=== PATIENT | male | born 1975 | race Caucasian/White ===

== ENCOUNTER 2018-10-25 13:37 | Inpatient (IN) | payer BC, SELFPAY ==
[2018-10-25] VITALS (34 sets, daily range): BP systolic 82–162; BP diastolic 54–111; PULSE 60–98; RESP 14–24; TEMP 35.6–36.7; O2SAT 95–100
--- NOTE | 2018-10-25 13:44 | NUR.NOTE ---
pt veered off path [employer] skiing at approximately 15 mph striking his right leg against a tree. obvious deformity. pt was wearing a helmet and denies LOC how hitting his head in any way. pt denies neck pain. any other complications other than right leg
--- NOTE | 2018-10-25 14:12 | DI.RAD_ITS ---
SYMPTOM/DIAGNOSIS: RIGHT TIBIA AND FIBULA: There is a fracture of the proximal fibula which shows more than a shaft width displacement. There is a fracture of the proximal third of the fibular shaft with approximately half shaft width of displacement laterally and posteriorly. The knee and ankle appear intact. IMPRESSION: Fractures of the proximal tibia and fibula. PORTABLE RIGHT TIBIA AND FIBULA: Two views were performed with a posterior splint in place. An intramedullary alina is again noted the tibia for fracture fixation. The proximal tibial and fibular fractures show anatomic alignment. There is no ankle mortise widening. The knee is unremarkable.
[2018-10-25] MEDS: Ketorolac 30 MG/ML VIAL IVP (14:16)
--- NOTE | 2018-10-25 14:37 | DI.VRAD_ITS ---
EXAM: XR Right Tibia and Fibula, 2 Views EXAM DATE/TIME: 10/25/2018 1:42 PM CLINICAL HISTORY: 43 years old, male; Pain; Lower leg; Right; Patient HX: Ski accident today TECHNIQUE: XR Right tibia and fibula 2 views COMPARISON: No relevant prior studies available. FINDINGS: Fractures of the proximal third of the tibia and fibula with approximately 1-1-1/2 shaft widths of lateral displacement and a half shaft width of posterior displacement. Mild medial angulation. Joint space is well-maintained. Soft tissues unremarkable. IMPRESSION: Fractures of the proximal thirds of the tibia and fibula. Dictated and Authenticated by: Jose Jay MD. Ordering:MARTINE Joyner MD
[2018-10-25 15:20] LABS: Abs Immature Grans 0.01 k/cumm (0.0-0.09); Absolute Eosinophil Count 0.04 k/cumm (0.0-0.7); Absolute Lymphocyte Count 1.12 k/cumm (1.2-3.4); Absolute Monocyte Count 0.89 k/cumm (0.11-0.7); Absolute Neutrophil Count 10.77 k/cumm (1.2-6.7); Basophils % 0.2; Eosinophils % 0.3; HCT 42.7 % (40.0-50.0); Immature Grans % 0.1; Lymphocytes % 8.7; Mean Corp. HGB Concentration 35.1 g/dL (32.0-36.0); Mean Corpuscular Hemoglobin 30.5 pg (27.0-33.0); Mean Platelet Volume 9.5 fL (8.0-11.0); Monocytes % 6.9; Neutrophils % 83.8; Platelet Count 299 x1000/uL (130-400); RBC 4.91 m/cumm (4.50-6.00); RBC Distribution Width 12.2 % (11.8-14.1); White Blood Cell Count 12.85 k/cumm (4.4-10.8)
[2018-10-25 15:21] LABS: Absolute Basophil Count 0.03 k/cumm (0.0-0.2)
[2018-10-25 15:32] LABS: ALT 60 U/L (12-78); AST 39 U/L (15-37); Albumin 4.3 g/dL (3.4-5.0); Alkaline Phosphatase 67 U/L (46-116); Anion Gap 7.1 mmol/L (3-11); BUN 17 mg/dL (7-18); Bilirubin, Total 0.6 mg/dL (0.2-1.0); CO2 31.9 mmol/L (21.0-32.0); Calcium 9.3 mg/dL (8.5-10.1); Chloride 101 mmol/L (98-107); Glucose 98 mg/dL (70-100); PTT Activated 21.5 sec (21.0-31.4); Potassium 4.5 mmol/L (3.5-5.1); Prothrombin Time 9.8 sec (9.3-11.0); Sodium 140 mmol/L (136-145); Total Protein 8.6 g/dL (6.4-8.2)
--- NOTE | 2018-10-25 16:11 | W.ED.GENAD ---
Discharge Plan Disposition Patient Disposition: [facility] INPATIENT Condition: Stable Discharge Details Chief Complaint: Orthopedic Clinical Impression: Closed tibia fracture, Fibula fracture Primary Care Provider: [facility] ED Provider: Ar Reed Home Meds and New Rx's Prescriptions: No Action dextroamphetamine-amphetamine [Adderall] 20 mg Tablet 20 mg PO DAILY RF: 0 Medical Decision Making This is a pleasant 43-year-old male who got in a skiing accident earlier today, his right juarez came in contact with a tree at a high rate of speed. Notable deformity in the right juarez. Neurovascularly intact upon his arrival to the ER. Concern for significant fracture. Patient shows no other signs of significant trauma for his pelvis, knee, ankle, chest or abdomen. X-ray exam does demonstrate notable fracture with displacement at the mid tib/fib. Patient continues to demonstrate an intact peripheral vascular exam, and neurologic exam. Two-point discrimination is intact, compartments remain soft with no signs of compartment syndrome. Because of the note ability the fracture we did contact orthopedics and discussed the case with Dr. Jara, he agrees with the need for surgical management. Patient's pain is been controlled with Toradol, and fentanyl. Patient's last meal was at 10:30 AM. Patient will be transferred to the OR for surgical management. During the entirety of the patient's stay is maintained excellent neurovascular exam. There was a brief 32 second period where the brace was taken off in imaging without the ER staff, and when he returned repeat exam shows signs concerning for decreased pulses in the right. Patient was immediately resplinted, and he demonstrated excellent capillary refill, dorsalis pedis and posterior tibial pulses. I have extensively reviewed the treatment plan with the patient. I have addressed all patient concerns at this time. I have also discussed the plan with the admitting physician and they agree with the current assessment and plan and have agreed to assume responsibility for the patient. All parties demonstrate verbal understanding and agreement with our assessment and plan at this time. HPI General Date/Time Provider Initiated Documentation: 10/25/18 13:40. HPI Narrative: This is a 43-year-old male with a past medical history of ADHD and Reynauds syndrome who presents today for evaluation of right leg pain. He was skiing at work when his leg hit a tree. He was extracted off the mountain to a prolonged process, he had notable deformity in his right lower extremity at the midshaft tib-fib. He was brought to the ER for further evaluation. Patient denies any numbness or tingling. He denies any knee pain, ankle pain, femur chest or pelvis pain. He did not hit his head, he has no loss of consciousness. He denies any other complaints. 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 Patient denies any other complaints at this time. No other modifying factors. He is on no blood thinners Related Data Home Medications Medication Instructions Recorded Confirmed dextroamphetamine-amphetamine 20 mg PO DAILY 10/25/18 10/25/18 [Adderall] Allergies Allergy/AdvReac Type Severity Reaction Status Date / Time No Known Allergies Allergy Unverified 10/25/18 13:52 General Stated Complaint: Orthopedic JARON: 3 Review of Systems Review of Systems All systems reviewed & are unremarkable except as noted in HPI and below PFSH Social History Smoking and Tabacco status: Never Exam Narrative Exam Narrative: 1.Const: Well-nourished, Well-developed, appearing stated age 2.Eyes: PERRL, no conjunctival injection, and symmetrical lids. 3.ENT: Atraumatic external nose and ears. Moist MM. Neck: Symmetric, trachea midline, No thyromegaly. 4.CVS: Regular rate and rhythm, Normal s1 and s2. No murmurs, carotid bruits, rubs, or gallops. Radial pulses 2+ bilaterally and symmetric. Dorsalis pedis pulses 2+ bilaterally and symmetric. 2+ capillary refill. No evidence of distant heart sounds. No extremity edema. No evidence of gross hemorrhage. 5.RESP: Airway clear, no obstructions. No abrasions or ecchymosis. Chest movement symmetric with respirations. No chest wall tenderness. Trachea midline. No crepitus. No step offs. No paradoxical movements. Lungs are clear to auscultation bilaterally. No rales, rhonchi, wheezing or stridor. Breath sound symmetric. No Sucking chest wounds. No clinical evidence of significant chest trauma. 6.GI: Soft, nondistended, nontender. Bowel tones normoactive. No masses or organomegaly. No ecchymosis or abrasions. No periumbilical ecchymosis or seatbelt sign. No flank or CVA tenderness. No clinical signs of significant trauma. No clinical evidence of significant abdominal trauma. 7.MSK: All compartments of upper and lower extremities are soft. Vascular exam demonstrates brisk capillary refill and intact pulses in all extremities. Pelvic exam demonstrates a stable pelvis, nontender to lateral compression and palpation of symphysis pubis. Notable deformity is present over the midshaft of the tib-fib on the right lower extremity. Patient is currently in a splint. Splint was removed and he demonstrated notable instability of the leg. While splinted patient's dorsalis pedis and posterior tibial pulses +2 bilaterally, with brisk capillary refill. This temporarily unsplinted for the x-ray imaging, at which point pulse was notably decreased, after re-splinting within 30 seconds he had complete resolution and strong pulse in his right lower extremity. Patient is able to flex and extend the foot, excellent sensation throughout the foot, good two-point discrimination for all toes. 8.Skin: Warm, Dry. No rashes or lesions. 9.Neuro: corporate manager II-XII grossly intact. Sensation grossly intact, no focal neurologic deficits. 10.Psych: (AAO) x3. Appropriate mood and affect Course Vital Signs Temperature 36.5 C 10/25/18 13:46 Pulse 98 H 10/25/18 13:46 Respiratory Rate 17 10/25/18 13:46 Blood Pressure 134/88 10/25/18 13:46 Pulse Oximetry 98 10/25/18 13:46 Temperature 36.5 C 10/25/18 13:46 Temperature Source Skin 10/25/18 13:46 Pulse 98 H 10/25/18 13:46 Respiratory Rate 17 10/25/18 13:46 Respiratory Effort 10/25/18 13:53 Blood Pressure 134/88 10/25/18 13:46 Blood Pressure Position Supine 10/25/18 13:46 Pulse Oximetry 98 10/25/18 13:46 Oxygen Delivery Method Room Air 10/25/18 13:46 Oxygen Flow Rate 0 10/25/18 13:46 Pain Level 6 10/25/18 13:46 Lab/Test Results Lab/Test Results: Laboratory Tests Range/Units 10/25/18 10/25/18 10/25/18 14:53 14:53 14:53 WBC (4.4-10.8) k/cumm 12.85 H RBC (4.50-6.00) m/cumm 4.91 Hgb (13.5-17.5) g/dL 15.0 Hct (40.0-50.0) % 42.7 MCV (80-95) fL 87.0 MCH (27.0-33.0) pg 30.5 MCHC (32.0-36.0) g/dL 35.1 RDW (11.8-14.1) % 12.2 Plt Count (130-400) x1000/uL 299 MPV (8.0-11.0) fL 9.5 Immature Gran % 0.1 Neutrophils % 83.8 Lymphocytes % 8.7 Monocytes % 6.9 Eosinophils % 0.3 Basophils % 0.2 Absolute Neutrophils (1.2-6.7) k/cumm 10.77 H Absolute Lymphocytes (1.2-3.4) k/cumm 1.12 L Absolute Monocytes (0.11-0.7) k/cumm 0.89 H Absolute Eosinophils (0.0-0.7) k/cumm 0.04 Absolute Basophils (0.0-0.2) k/cumm 0.03 PT (9.3-11.0) sec 9.8 INR (0.9-1.1) 1.0 APTT (21.0-31.4) sec 21.5 Sodium (136-145) mmol/L 140 Potassium (3.5-5.1) mmol/L 4.5 Chloride (98-107) mmol/L 101 Carbon Dioxide (21.0-32.0) mmol/L 31.9 Anion Gap (3-11) mmol/L 7.1 BUN (7-18) mg/dL 17 Creatinine (0.70-1.30) mg/dL 1.10 Estimated GFR/1.73 m2 (mL/min/1.73m2) >= 60.00 Glucose (70-100) mg/dL 98 Calcium (8.5-10.1) mg/dL 9.3 Total Bilirubin (0.2-1.0) mg/dL 0.6 AST (15-37) U/L 39 H ALT (12-78) U/L 60 Alkaline Phosphatase (46-116) U/L 67 Total Protein (6.4-8.2) g/dL 8.6 H Albumin (3.4-5.0) g/dL 4.3
--- NOTE | 2018-10-25 16:14 | NUR.NOTE ---
pidal pulse strong and equal bilaterally when affected limb is splinted. however pedal pulse absent when right leg not splinted
--- NOTE | 2018-10-25 16:22 | ED.GENADUL_ITS ---
Discharge Plan Disposition Patient Disposition: [facility] INPATIENT Condition: Stable Discharge Details Chief Complaint: Orthopedic Clinical Impression: Closed tibia fracture, Fibula fracture Primary Care Provider: [facility] ED Provider: Ar Reed Home Meds and New Rx's Prescriptions: No Action dextroamphetamine-amphetamine [Adderall] 20 mg Tablet 20 mg PO DAILY RF: 0 Medical Decision Making This is a pleasant 43-year-old male who got in a skiing accident earlier today, his right juarez came in contact with a tree at a high rate of speed. Notable deformity in the right juarez. Neurovascularly intact upon his arrival to the ER. Concern for significant fracture. Patient shows no other signs of significant trauma for his pelvis, knee, ankle, chest or abdomen. X- ray exam does demonstrate notable fracture with displacement at the mid tib/fib. Patient continues to demonstrate an intact peripheral vascular exam, and neurologic exam. Two-point discrimination is intact, compartments remain soft with no signs of compartment syndrome. Because of the note ability the fracture we did contact orthopedics and discussed the case with Dr. Jara, he agrees with the need for surgical management. Patient's pain is been controlled with Toradol, and fentanyl. Patient's last meal was at 10:30 AM. Patient will be transferred to the OR for surgical management. During the entirety of the patient's stay is maintained excellent neurovascular exam. There was a brief 32 second period where the brace was taken off in imaging without the ER staff, and when he returned repeat exam shows signs concerning for decreased pulses in the right. Patient was immediately resplinted, and he demonstrated excellent capillary refill, dorsalis pedis and posterior tibial pulses. I have extensively reviewed the treatment plan with the patient. I have addressed all patient concerns at this time. I have also discussed the plan with the admitting physician and they agree with the current assessment and plan and have agreed to assume responsibility for the patient. All parties demonstrate verbal understanding and agreement with our assessment and plan at this time. HPI General Date/Time Provider Initiated Documentation: 10/25/18 13:40 . HPI Narrative: This is a 43-year-old male with a past medical history of ADHD and Reynauds syndrome who presents today for evaluation of right leg pain. He was skiing at work when his leg hit a tree. He was extracted off the mountain to a prolonged process, he had notable deformity in his right lower extremity at the midshaft tib-fib. He was brought to the ER for further evaluation. Patient denies any numbness or tingling. He denies any knee pain, ankle pain, femur chest or pelvis pain. He did not hit his head, he has no loss of consciousness. He denies any other complaints. 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 Patient denies any other complaints at this time. No other modifying factors. He is on no blood thinners Related Data Home Medications Medication Instructions Recorded Confirmed dextroamphetamine-amphetamine 20 mg PO DAILY 10/25/18 10/25/18 [Adderall] Allergies Allergy/AdvReac Type Severity Reaction Status Date / Time No Known Allergies Allergy Unverified 10/25/18 13:52 General Stated Complaint: Orthopedic JARON: 3 Review of Systems Review of Systems All systems reviewed & are unremarkable except as noted in HPI and below PFSH Social History Smoking and Tabacco status: Never Exam Narrative Exam Narrative: 1.Const: Well-nourished, Well-developed, appearing stated age 2.Eyes: PERRL, no conjunctival injection, and symmetrical lids. 3.ENT: Atraumatic external nose and ears. Moist MM. Neck: Symmetric, trachea midline, No thyromegaly. 4.CVS: Regular rate and rhythm, Normal s1 and s2. No murmurs, carotid bruits, rubs, or gallops. Radial pulses 2+ bilaterally and symmetric. Dorsalis pedis pulses 2+ bilaterally and symmetric. 2+ capillary refill. No evidence of distant heart sounds. No extremity edema. No evidence of gross hemorrhage. 5.RESP: Airway clear, no obstructions. No abrasions or ecchymosis. Chest movement symmetric with respirations. No chest wall tenderness. Trachea midline. No crepitus. No step offs. No paradoxical movements. Lungs are clear to auscultation bilaterally. No rales, rhonchi, wheezing or stridor. Breath sound symmetric. No Sucking chest wounds. No clinical evidence of significant chest tr auma. 6.GI: Soft, nondistended, nontender. Bowel tones normoactive. No masses or organomegaly. No ecchymosis or abrasions. No periumbilical ecchymosis or seatbelt sign. No flank or CVA tenderness. No clinical signs of significant trauma. No clinical evidence of significant abdominal trauma. 7.MSK: All compartments of upper and lower extremities are soft. Vascular exam demonstrates brisk capillary refill and intact pulses in all extremities. Pelvic exam demonstrates a stable pelvis, nontender to lateral compression and palpation of symphysis pubis. Notable deformity is present over the midshaft of the tib-fib on the right lower extremity. Patient is currently in a splint. Splint was removed and he demonstrated notable instability of the leg. While splinted patient's dorsalis pedis and posterior tibial pulses +2 bilaterally, with brisk capillary refill. This temporarily unsplinted for the x-ray imaging, at which point pulse was notably decreased, after re-splinting within 30 se conds he had complete resolution and strong pulse in his right lower extremity. Patient is able to flex and extend the foot, excellent sensation throughout the foot, good two-point discrimination for all toes. 8.Skin: Warm, Dry. No rashes or lesions. 9.Neuro: credit verifier II-XII grossly intact. Sensation grossly intact, no focal neurologic deficits. 10.Psych: (AAO) x3. Appropriate mood and affect Course Vital Signs Temperature 36.5 C 10/25/18 13:46 Pulse 98 H 10/25/18 13:46 Respiratory Rate 17 10/25/18 13:46 Blood Pressure 134/88 10/25/18 13:46 Pulse Oximetry 98 10/25/18 13:46 Temperature 36.5 C 10/25/18 13:46 Temperature Source Skin 10/25/18 13:46 Pulse 98 H 10/25/18 13:46 Respiratory Rate 17 10/25/18 13:46 Respiratory Effort 10/25/18 13:53 Blood Pressure 134/88 10/25/18 13:46 Blood Pressure Position Supine 10/25/18 13:46 Pulse Oximetry 98 10/25/18 13:46 Oxygen Delivery Method Room Air 10/25/18 13:46 Oxygen Flow Rate 0 10/25/18 13:46 Pain Level 6 10/25/18 13:46 Lab/Test Results Lab/Test Results: Laboratory Tests Range/Units 10/25/18 10/25/18 10/25/18 14:53 14:53 14:53 WBC (4.4-10.8) k/cumm 12.85 H RBC (4.50-6.00) m/cumm 4.91 Hgb (13.5-17.5) g/dL 15.0 Hct (40.0-50.0) % 42.7 MCV (80-95) fL 87.0 MCH (27.0-33.0) pg 30.5 MCHC (32.0-36.0) g/dL 35.1 RDW (11.8-14.1) % 12.2 Plt Count (130-400) x1000/uL 299 MPV (8.0-11.0) fL 9.5 Immature Gran % 0.1 Neutrophils % 83.8 Lymphocytes % 8.7 Monocytes % 6.9 Eosinophils % 0.3 Basophils % 0.2 Absolute Neutrophils (1.2-6.7) k/cumm 10.77 H Absolute Lymphocytes (1.2-3.4) k/cumm 1.12 L Absolute Monocytes (0.11-0.7) k/cumm 0.89 H Absolute Eosinophils (0.0-0.7) k/cumm 0.04 Absolute Basophils (0.0-0.2) k/cumm 0.03 PT (9.3-11.0) sec 9.8 INR (0.9-1.1) 1.0 APTT (21.0-31.4) sec 21.5 Sodium (136-145) mmol/L 140 Potassium (3.5-5.1) mmol/L 4.5 Chloride (98-107) mmol/L 101 Carbon Dioxide (21.0-32.0) mmol/L 31.9 Anion Gap (3-11) mmol/L 7.1 BUN (7-18) mg/dL 17 Creatinine (0.70-1.30) mg/dL 1.10 Estimated GFR/1.73 m2 (mL/min/1.73m2) >= 60.00 Glucose (70-100) mg/dL 98 Calcium (8.5-10.1) mg/dL 9.3 Total Bilirubin (0.2-1.0) mg/dL 0.6 AST (15-37) U/L 39 H ALT (12-78) U/L 60 Alkaline Phosphatase (46-116) U/L 67 Total Protein (6.4-8.2) g/dL 8.6 H Albumin (3.4-5.0) g/dL 4.3
--- NOTE | 2018-10-25 17:22 | W.ORTHOCONSU ---
Date of service: 10/25/18 Time of Service: 15:22 History of Present Illness Chief Complaint: Right Tibia Fracture Narrative: Rafael is a 43-year-old active individual who was skiing today at [place]. He was coming down some drain when he lost control and eventually hit a tree. He hit the tree with the right leg. He is unsure exactly the complete mechanism. However, he had notable deformity pain and was unable to ambulate. police or patrol park officer was able to evaluate him and placed him into a splint to bring down the mountain. Once arrived at [facility] he was noted to have a tibia shaft fracture of the proximal fibula fracture. There was grossly unstable and had difficulty in maintaining an adequate reduction. He did have a moment where his pulses were faint while the splint was removed for x-ray. However, they quickly came back with appropriate reduction and splinting. He notes pain throughout the majority of the leg especially the mid and proximal portion of the tibia. He denies any numbness or tingling distally into the leg. He denies previous surgery to the knee or to the leg. He does report having a known meniscal tear of the right knee. His only other medical issue is Reynauds and ADHD. He denied any head trauma. No loss of consciousness. No chest pain or shortness of breath. No pain with gentle motion of his toes. Consult Reason Right tibia fracture Assessment and Plan (1) Right tibial fracture: Start date: 10/25/18 Start time: 13:32 Current visit: Yes Status: Acute Rafael is a 43-year-old who has suffered a right tibia fibula fracture after colliding with a tree. He has gross instability of the leg and a very tenuous pulse if the reduction is lost. He has no other injury identified and is otherwise healthy. Given this fracture I would recommend fixation as soon as possible. He is from the [facility] with a second house locally. It is also not unreasonable to consider splinting and transfer to an emergency department in his local area. However, I am happy to fix this here. I do think it is necessary to be fixed rather quickly to prevent any continued bleeding and swelling and also make sure there is no transient loss of pulses due to positioning. There is a risk of compartment syndrome and therefore he will need to be admitted overnight for observation following surgery. I reviewed the technical details of the surgery, intramedullary nail fixation of the tibia. I reviewed the risk of the procedure to include bleeding, infection, pain, stiffness, damage to nerves and vessels, damage to muscle tendons, hardware prominence, hardware failure, malunion, nonunion, need for repeat procedures, compartment syndrome, blood clot. Despite these risks, he elects to proceed. Qualifiers: Encounter type: initial encounter Tibia location: shaft Fracture type: closed Fracture morphology: transverse Fracture alignment: displaced Qualified Code(s): S82.221A - Displaced transverse fracture of shaft of right tibia, initial encounter for closed fracture Review of Systems Review of Systems All systems reviewed & are unremarkable except as noted in HPI and below PFSH Medical History ADHD (Acute) Raynaud disease (Acute) Social History Smoking and Tabacco status: Never Exam Const General: cooperative, healthy appearing, comfortable, no acute distress and well developed Nutritional Appearance: average body habitus Orientation: alert, awake and oriented x3 HENMT Head: normal to inspection and normocephalic Ears: hearing grossly normal bilaterally Face and sinus: normal facial exam Chest Chest: normal inspection of the chest Resp Effort & Inspection: normal respiratory effort and able to speak in complete sentences Auscultation: clear to auscultation bilaterally Cardio Rate: regular rate Rhythm: regular rhythm Extrem Right lower extremity: lower leg Details: tenderness Location: of the proximal tibia, of the proximal fibula and of the midshaft tibia, abrasion proximal lower leg medial and deformity Location: of the mid lower leg Other: There is significant softness of the proximal aspect of the distal leg with gross motion which is palpable throughout the tibia. Crepitus as well. All compartments are soft. He is able to actively dorsiflex and plantarflex the ankle as well as extend and flex the great toe with very minimal amount of pain. He endorses full sensation to the superficial peroneal nerve, deep peroneal nerve, and tibial nerve. There is an easily palpable PT and DP pulse. The foot is warm well perfused. There is a superficial abrasion seen of the proximal medial aspect of the leg. There is no knee effusion. No pain to palpation of the thigh. Results Last Vital Signs Temp 36.5 C 10/25/18 13:46 Pulse 87 10/25/18 16:00 Resp 17 10/25/18 13:46 BP 124/74 10/25/18 16:00 Pulse Ox 98 10/25/18 16:01 Labs : 10/25/18 14:53 10/25/18 14:53 Laboratory Results - last 24 hr 10/25/18 10/25/18 10/25/18 14:53 14:53 14:53 WBC 12.85 H RBC 4.91 Hgb 15.0 Hct 42.7 MCV 87.0 MCH 30.5 MCHC 35.1 RDW 12.2 Plt Count 299 MPV 9.5 Immature Gran % 0.1 Neutrophils % 83.8 Lymphocytes % 8.7 Monocytes % 6.9 Eosinophils % 0.3 Basophils % 0.2 Absolute Neutrophils 10.77 H Absolute Lymphocytes 1.12 L Absolute Monocytes 0.89 H Absolute Eosinophils 0.04 Absolute Basophils 0.03 PT INR APTT Sodium 140 Potassium 4.5 Chloride 101 Carbon Dioxide 31.9 Anion Gap 7.1 BUN 17 Creatinine 1.10 Estimated GFR/1.73 m2 >= 60.00 Glucose 98 Calcium 9.3 Total Bilirubin 0.6 AST 39 H ALT 60 Alkaline Phosphatase 67 Total Protein 8.6 H Albumin 4.3 Patient ABO/Rh A Positive Antibody Screen Negative 10/25/18 14:53 WBC RBC Hgb Hct MCV MCH MCHC RDW Plt Count MPV Immature Gran % Neutrophils % Lymphocytes % Monocytes % Eosinophils % Basophils % Absolute Neutrophils Absolute Lymphocytes Absolute Monocytes Absolute Eosinophils Absolute Basophils PT 9.8 INR 1.0 APTT 21.5 Sodium Potassium Chloride Carbon Dioxide Anion Gap BUN Creatinine Estimated GFR/1.73 m2 Glucose Calcium Total Bilirubin AST ALT Alkaline Phosphatase Total Protein Albumin Patient ABO/Rh Antibody Screen Imaging Imaging Studies: Right tibia fibula. This demonstrates a mostly midshaft transverse tibia fracture with complete displacement and some mild shortening as well as a comminuted proximal fibula fracture.
[2018-10-25] MEDS: Lactated Ringers 1,000 ML 30 ML IV ×2 (17:34→20:33)
[2018-10-25] MEDS: Tranexamic Acid 1,000 MG/10 ML VIAL 1000 MG IV (17:55)
[2018-10-25] MEDS: Bupivacaine 0.5% Pres-Free 30 ML VIAL (19:36)
--- NOTE | 2018-10-25 19:40 | DI.VRAD_ITS ---
EXAM: XR Right Tibia and Fibula, 2 Views EXAM DATE/TIME: 10/25/2018 7:28 PM CLINICAL HISTORY: 43 years old, male; Device placement; Other: Closed tibia FX fib FX TECHNIQUE: XR Right tibia and fibula 2 views COMPARISON: CR XR tib/fib RT 10/25/2018 1:45 PM FINDINGS: Intramedullary alina fixation of a proximal tibial fracture in near-anatomic alignment. Relatively nondisplaced fracture of the proximal third of the fibula. Soft tissues unremarkable. Visualized joint spaces well-maintained. IMPRESSION: 1. Intramedullary alina fixation of tibial fracture in anatomic alignment. 2. Nondisplaced proximal fibular fracture. Dictated and Authenticated by: Jose Jay MD. Ordering:TAJ Wade MD
[2018-10-25] MEDS: Ketorolac 15 MG/ML VIAL IVP (20:30)
[2018-10-25] MEDS: Acetaminophen 500 MG TAB 1000 MG PO (22:29)
[2018-10-25] MEDS: Lactated Ringers 1,000 ML 100 ML IV (22:30)
[2018-10-26] MEDS: oxyCODONE 5 MG TAB PO ×2 (00:21→13:30)
[2018-10-26 04:55] VITALS: BP 129/68; PULSE 70; RESP 16; TEMP 36.5; O2SAT 98
--- NOTE | 2018-10-26 07:54 | W.PM.DS.N ---
Date of service: 10/26/18 Time of Service: 07:55 DS: Diagnosis Discharge Diagnosis (1) Right tibial fracture: Status: Acute Discharge Plan Disposition Patient Disposition: HOME Condition: Stable Discharge Details Chief Complaint: Orthopedic Reason For Visit: TIB FIB FRACTURE Admit Date/Time: 10/25/18 14:43 Admit Provider: Mauro Jara Attending Provider: Mauro Jara [facility] Hospital Course Hospital Course: Patient was admitted to the medical surgical floor following his procedure overnight. He did well with good pain control. His capillary refill is less than 3 seconds that he reported good pain without any exacerbation with passive or active motion of the toes. He is voiding spontaneously. On postop day #1 he was able to mobilize with physical therapy with nonweightbearing precautions and was cleared for safe discharge home. Home Meds and New Rx's Prescriptions: New acetaminophen 500 mg tablet 1,000 mg PO Q8H PRN (Reason: pain) Qty: 90 RF: 3 ibuprofen 600 mg tablet 600 mg PO TID PRN (Reason: pain) Qty: 90 RF: 3 oxycodone 5 mg tablet 5 mg PO Q4H Qty: 15 RF: 0 Continued dextroamphetamine-amphetamine [Adderall] 20 mg Tablet 20 mg PO DAILY RF: 0 Discharge Instructions Additional Instructions: Activity: You are NON WEIGHT BEARING. You should keep the leg elevated as much as possible. You may wiggle your toes and move your hip and knee. See complete discharge protocol below. Dressings: You should keep your splint clean and dry. Do NOT get wet or dirty. If you have issues with your splint, please call and ask for Dr. Jara. Medications: - You should take Tylenol and Ibuprofen around the clock for baseline pain. - You have been prescribed a stronger narcotic, Oxycodone, for breakthrough pain. - You should take a Baby Aspirin (81mg) twice a day for blood clot prevention. Follow-up: 2 weeks, 6 weeks, 3 months DISCHARGE PROTOCOL: Contact: You may reach Dr. Jara at [email or web address]. Cell phone is [phone]. Please do not hesistate to reach out with any concerns or questions. Splint: You will wear the splint for the first 10-14 days. You should see a local orthopedic surgeon (or primary care provider) to have the splint and sutures removed. After the splint has been removed you should apply a fracture walking boot. Placing a tube sock or stockinette over the leg prior to putting it in the boot is advised. After the splint is removed the wounds should be covered only if needed but usually not. Follow-up Plan: 0-2 weeks: Non weight bearing on the right leg. Keep elevated, especially for the first few days. You may move otherwise as tolerated. 2-6 weeks: Remove splint and sutures and wear the fracture walker boot. You may then start to progress your weight bearing starting with toe touch (just the weight of the leg) and advancing to full weight bearing as tolerated. You will use the crutches to help offload the weight as needed. You should focus on ankle, foot and knee range of motion. As long as you are not ambulating,you may have the boot off including showering/bathing. 6-12 week: X-ray at the 6 week visit. You should be nearing full weight bearing with the boot. Once you are fully weight bearing you may start to transition to a regular shoe but this may take some time. You should start Physical Therapy by the 6 week visit. 12-16 weeks: X-ray at 12 weeks to confirm alignment and healing. You should be full weight bearing and now working on strengthening and at this time you may start to progress into impact activities (running, jumping sports, etc.). Referrals: Mauro Jara MD [ [facility] STAFF PHYSICIAN] - Activity:: Keep elevated. NWB for first 2 weeks Equipment/Supplies:: Crutches Diet:: As Tolerated Discharge Orders Discharge Orders: Discharge Order (Routine); Ordered 10/26/18 Ordered By: Mauro Jara DS: Data Vitals/I&O Vitals and I&O: Vital Signs Temperature 36.5 C 10/26/18 04:55 Temperature Source Tympanic 10/26/18 04:55 Pulse 70 10/26/18 04:55 Pulse Rhythm Regular 10/26/18 00:00 Respiratory Rate 16 10/26/18 04:55 Respiratory Effort Non-Labored 10/26/18 00:00 Respiratory Depth Normal 10/26/18 00:00 Respiratory Pattern Normal 10/26/18 00:00 Blood Pressure 129/68 10/26/18 04:55 Blood Pressure Mean 77 10/25/18 17:15 Blood Pressure Position Supine 10/25/18 13:46 Pulse Oximetry 98 10/26/18 04:55 Respiratory End-tidal CO2 33 10/25/18 20:15 Oxygen Delivery Method Room Air 10/26/18 04:55 Oxygen Flow Rate 0 10/26/18 04:55 Pain Level 0 10/25/18 20:35 Intake & Output 10/25/18 10/25/18 10/26/18 11:59 23:59 11:59 Intake Total 1035.5 / 1035.5 100 / 100 Output Total 900 / 900 375 / 375 Balance 135.5 / 135.5 -275 / -275 Weight 86.183 kg 90.4 kg Intake: IV 1035.5 / 1035.5 100 / 100 Output: Urine 600 / 600 375 / 375 Estimated Blood Loss 300 / 300 Other: Urine Color Yellow Yellow Urine Appearance Clear Clear Urine Odor None Normal Emesis Description None Voiding Methods Urinal Urinal Labs on day of discharge: Labs from last 24 hours 10/25/18 10/25/18 10/25/18 14:53 14:53 14:53 WBC 12.85 H RBC 4.91 Hgb 15.0 Hct 42.7 MCV 87.0 MCH 30.5 MCHC 35.1 RDW 12.2 Plt Count 299 MPV 9.5 Immature Gran % 0.1 Neutrophils % 83.8 Lymphocytes % 8.7 Monocytes % 6.9 Eosinophils % 0.3 Basophils % 0.2 Absolute Neutrophils 10.77 H Absolute Lymphocytes 1.12 L Absolute Monocytes 0.89 H Absolute Eosinophils 0.04 Absolute Basophils 0.03 PT 9.8 INR 1.0 APTT 21.5 Sodium 140 Potassium 4.5 Chloride 101 Carbon Dioxide 31.9 Anion Gap 7.1 BUN 17 Creatinine 1.10 Estimated GFR/1.73 m2 >= 60.00 Glucose 98 Calcium 9.3 Total Bilirubin 0.6 AST 39 H ALT 60 Alkaline Phosphatase 67 Total Protein 8.6 H Albumin 4.3 Patient ABO/Rh Antibody Screen 10/25/18 14:53 WBC RBC Hgb Hct MCV MCH MCHC RDW Plt Count MPV Immature Gran % Neutrophils % Lymphocytes % Monocytes % Eosinophils % Basophils % Absolute Neutrophils Absolute Lymphocytes Absolute Monocytes Absolute Eosinophils Absolute Basophils PT INR APTT Sodium Potassium Chloride Carbon Dioxide Anion Gap BUN Creatinine Estimated GFR/1.73 m2 Glucose Calcium Total Bilirubin AST ALT Alkaline Phosphatase Total Protein Albumin Patient ABO/Rh A Positive Antibody Screen Negative [facility] Medical History ADHD (Acute) Raynaud disease (Acute) Social History Smoking and Tabacco status: Never
--- NOTE | 2018-10-26 07:58 | DSE_ITS ---
Date of service: 10/26/18 Time of Service: 07:55 DS: Diagnosis Discharge Diagnosis (1) Right tibial fracture: Status: Acute Discharge Plan Disposition Patient Disposition: HOME Condition: Stable Discharge Details Chief Complaint: Orthopedic Reason For Visit: TIB FIB FRACTURE Admit Date/Time: 10/25/18 14:43 Admit Provider: Mauro Jara Attending Provider: Mauro Jara [facility] Hospital Course Hospital Course: Patient was admitted to the medical surgical floor following his procedure overnight. He did well with good pain control. His capillary refill is less than 3 seconds that he reported good pain without any exacerbation with passive or active motion of the toes. He is voiding spontaneously. On postop day #1 he was able to mobilize with physical therapy with nonweightbearing precautions and was cleared for safe discharge home. Home Meds and New Rx's Prescriptions: New acetaminophen 500 mg tablet 1,000 mg PO Q8H PRN (Reason: pain) Qty: 90 RF: 3 ibuprofen 600 mg tablet 600 mg PO TID PRN (Reason: pain) Qty: 90 RF: 3 oxycodone 5 mg tablet 5 mg PO Q4H Qty: 15 RF: 0 Continued dextroamphetamine-amphetamine [Adderall] 20 mg Tablet 20 mg PO DAILY RF: 0 Discharge Instructions Additional Instructions: Activity: You are NON WEIGHT BEARING. You should keep the leg elevated as much as possible. You may wiggle your toes and move your hip and knee. See complete discharge protocol below. Dressings: You should keep your splint clean and dry. Do NOT get wet or dirty. If you have issues with your splint, please call and ask for Dr. Jara. Medications: - You should take Tylenol and Ibuprofen around the clock for baseline pain. - You have been prescribed a stronger narcotic, Oxycodone, for breakthrough pain. - You should take a Baby Aspirin (81mg) twice a day for blood clot prevention. Follow-up: 2 weeks, 6 weeks, 3 months DISCHARGE PROTOCOL: Contact: You may reach Dr. Jara at [email or web address]. Cell phone is [phone]. Please do not hesistate to reach out with any concerns or questions. Splint: You will wear the splint for the first 10-14 days. You should see a local orthopedic surgeon (or primary care provider) to have the splint and sutures removed. After the splint has been removed you should apply a fracture walking boot. Placing a tube sock or stockinette over the leg prior to putting it in the boot is advised. After the splint is removed the wounds should be covered only if needed but usually not. Follow-up Plan: 0-2 weeks: Non weight bearing on the right leg. Keep elevated, especially for the first few days. You may move otherwise as tolerated. 2-6 weeks: Remove splint and sutures and wear the fracture walker boot. You may then start to progress your weight bearing starting with toe touch (just the weight of the leg) and advancing to full weight bearing as tolerated. You will use the crutches to help offload the weight as needed. You should focus on ankle, foot and knee range of motion. As long as you are not ambulating,you may have the boot off including showering/bathing. 6-12 week: X-ray at the 6 week visit. You should be nearing full weight bearing with the boot. Once you are fully weight bearing you may start to transition to a regular shoe but this may take some time. You should start Physical Therapy by the 6 week visit. 12-16 weeks: X-ray at 12 weeks to confirm alignment and healing. You should be full weight bearing and now working on strengthening and at this time you may start to progress into impact activities (running, jumping sports, etc.). Referrals: Mauro Jara MD [ [facility] STAFF PHYSICIAN] - Activity:: Keep elevated. NWB for first 2 weeks Equipment/Supplies:: Crutches Diet:: As Tolerated Discharge Orders Discharge Orders: Discharge Order (Routine); Ordered 10/26/18 Ordered By: Mauro Jara DS: Data Vitals/I&O Vitals and I&O: Vital Signs Temperature 36.5 C 10/26/18 04:55 Temperature Source Tympanic 10/26/18 04:55 Pulse 70 10/26/18 04:55 Pulse Rhythm Regular 10/26/18 00:00 Respiratory Rate 16 10/26/18 04:55 Respiratory Effort Non-Labored 10/26/18 00:00 Respiratory Depth Normal 10/26/18 00:00 Respiratory Pattern Normal 10/26/18 00:00 Blood Pressure 129/68 10/26/18 04:55 Blood Pressure Mean 77 10/25/18 17:15 Blood Pressure Position Supine 10/25/18 13:46 Pulse Oximetry 98 10/26/18 04:55 Respiratory End-tidal CO2 33 10/25/18 20:15 Oxygen Delivery Method Room Air 10/26/18 04:55 Oxygen Flow Rate 0 10/26/18 04:55 Pain Level 0 10/25/18 20:35 Intake & Output 10/25/18 10/25/18 10/26/18 11:59 23:59 11:59 Intake Total 1035.5 / 1035.5 100 / 100 Output Total 900 / 900 375 / 375 Balance 135.5 / 135.5 -275 / -275 Weight 86.183 kg 90.4 kg Intake: IV 1035.5 / 1035.5 100 / 100 Output: Urine 600 / 600 375 / 375 Estimated Blood Loss 300 / 300 Other: Urine Color Yellow Yellow Urine Appearance Clear Clear Urine Odor None Normal Emesis Description None Voiding Methods Urinal Urinal Labs on day of discharge: Labs from last 24 hours 10/25/18 10/25/18 10/25/18 14:53 14:53 14:53 WBC 12.85 H RBC 4.91 Hgb 15.0 Hct 42.7 MCV 87.0 MCH 30.5 MCHC 35.1 RDW 12.2 Plt Count 299 MPV 9.5 Immature Gran % 0.1 Neutrophils % 83.8 Lymphocytes % 8.7 Monocytes % 6.9 Eosinophils % 0.3 Basophils % 0.2 Absolute Neutrophils 10.77 H Absolute Lymphocytes 1.12 L Absolute Monocytes 0.89 H Absolute Eosinophils 0.04 Absolute Basophils 0.03 PT 9.8 INR 1.0 APTT 21.5 Sodium 140 Potassium 4.5 Chloride 101 Carbon Dioxide 31.9 Anion Gap 7.1 BUN 17 Creatinine 1.10 Estimated GFR/1.73 m2 >= 60.00 Glucose 98 Calcium 9.3 Total Bilirubin 0.6 AST 39 H ALT 60 Alkaline Phosphatase 67 Total Protein 8.6 H Albumin 4.3 Patient ABO/Rh Antibody Screen 10/25/18 14:53 WBC RBC Hgb Hct MCV MCH MCHC RDW Plt Count MPV Immature Gran % Neutrophils % Lymphocytes % Monocytes % Eosinophils % Basophils % Absolute Neutrophils Absolute Lymphocytes Absolute Monocytes Absolute Eosinophils Absolute Basophils PT INR APTT Sodium Potassium Chloride Carbon Dioxide Anion Gap BUN Creatinine Estimated GFR/1.73 m2 Glucose Calcium Total Bilirubin AST ALT Alkaline Phosphatase Total Protein Albumin Patient ABO/Rh A Positive Antibody Screen Negative [facility] Medical History ADHD (Acute) Raynaud disease (Acute) Social History Smoking and Tabacco status: Never
[2018-10-26 08:20] VITALS: BP 112/69; PULSE 77; RESP 16; TEMP 36.2; O2SAT 100
[2018-10-26] MEDS: Enoxaparin 40 MG/0.4 ML SYR SC (08:29)
[2018-10-26] MEDS: Normal Saline Flush 10 ML SYR IVP ×2 (08:30→12:01)
[2018-10-26] MEDS: Acetaminophen 500 MG TAB 1000 MG PO (08:30)
[2018-10-26] MEDS: Ketorolac 15 MG/ML VIAL IVP ×2 (08:31→12:02)
--- NOTE | 2018-10-26 08:47 | DI.RAD_ITS ---
SYMPTOM/DIAGNOSIS: S/P INTRAMEDULLARY NAILING OF RT TIF-FIB FX C-ARM: Fluoroscopy Time: 224 seconds Fluoroscopy was provided in the OR for Dr. Jara. Hard copy images show placement of an intramedullary alina through the tibia for fixation of the previously noted fracture. The alignment appears anatomic. The alignment of the proximal fibular fracture also shows anatomic alignment.
--- NOTE | 2018-10-26 08:53 | W.PM.PROGNOT ---
Date of Service Date of service: 10/26/18 Time of Service: 08:53 Assessment and Plan (1) Right tibial fracture: Current visit: Yes Status: Acute Rafael is doing well s/p IMN for R tibia fracture. His DP pulse has returned with palpation. He has some slight numbness in the DP distribution which is likely due to NV bundle irritation and manipulation from the fracture, especially at that level. We will have him work with PT this morning and then d/c to home. Complete discharge plans will be provided. Lovenox x 1 this AM and then Baby Aspirin (81mg) twice a day for DVT prophylaxis. Qualifiers: Encounter type: initial encounter Tibia location: shaft Fracture type: closed Open fracture type: Fracture morphology: transverse Fracture alignment: displaced Salter-Hdez Fracture Type: Fracture healing: Qualified Code(s): S82.221A - Displaced transverse fracture of shaft of right tibia, initial encounter for closed fracture Subjective Interval history since last seen: Rafael is doing well. He has had some minimal pain, responding well to a single Oxycodone. He has been voiding spontaneously. No significant pain. Mild dystesthesias at the great toe. Overnight CSMT intact. Exam Narrative Exam Narrative: NAD. Sitting in bed. AAOx3 RLE with some sanguinous drainage from the proximal knee wound. This is very minimal and the dressing is changed. No significant bleeding. Fullness to the leg but compressible. No pain with passive nor active ROM of the toes. Decreased sensation in the DP distribution. SP and Tib intact. Palpable DP pulse. CR about 3 seconds. Objective Objective Clinical Data: Abnormal lab results 10/25/18 10/25/18 Range/Units 14:53 14:53 WBC 12.85 H (4.4-10.8) k/cumm Absolute Neutrophils 10.77 H (1.2-6.7) k/cumm Absolute Lymphocytes 1.12 L (1.2-3.4) k/cumm Absolute Monocytes 0.89 H (0.11-0.7) k/cumm AST 39 H (15-37) U/L Total Protein 8.6 H (6.4-8.2) g/dL Vital Signs Temperature 36.2 C L 10/26/18 08:20 Temperature Source Tympanic 10/26/18 08:20 Pulse 77 10/26/18 08:20 Pulse Rhythm Regular 10/26/18 00:00 Respiratory Rate 16 10/26/18 08:20 Respiratory Effort Non-Labored 10/26/18 00:00 Respiratory Depth Normal 10/26/18 00:00 Respiratory Pattern Normal 10/26/18 00:00 Blood Pressure 112/69 10/26/18 08:20 Blood Pressure Mean 77 10/25/18 17:15 Blood Pressure Position Supine 10/25/18 13:46 Pulse Oximetry 100 10/26/18 08:20 Respiratory End-tidal CO2 33 10/25/18 20:15 Oxygen Delivery Method Room Air 10/26/18 08:20 Oxygen Flow Rate 0 10/26/18 08:20 Pain Level 2 10/26/18 08:31 Intake & Output 10/25/18 10/25/18 10/26/18 11:59 23:59 11:59 Intake Total 1035.5 / 1035.5 100 / 100 Output Total 900 / 900 375 / 375 Balance 135.5 / 135.5 -275 / -275 Weight 86.183 kg 90.4 kg Intake: IV 1035.5 / 1035.5 100 / 100 Output: Urine 600 / 600 375 / 375 Estimated Blood Loss 300 / 300 Other: Urine Color Yellow Yellow Urine Appearance Clear Clear Urine Odor None Normal Emesis Description None Voiding Methods Urinal Urinal Laboratory Results WBC 12.85 k/cumm (4.4-10.8) H 10/25/18 14:53 RBC 4.91 m/cumm (4.50-6.00) 10/25/18 14:53 Hgb 15.0 g/dL (13.5-17.5) 10/25/18 14:53 Hct 42.7 % (40.0-50.0) 10/25/18 14:53 MCV 87.0 fL (80-95) 10/25/18 14:53 MCH 30.5 pg (27.0-33.0) 10/25/18 14:53 MCHC 35.1 g/dL (32.0-36.0) 10/25/18 14:53 RDW 12.2 % (11.8-14.1) 10/25/18 14:53 Plt Count 299 x1000/uL (130-400) 10/25/18 14:53 MPV 9.5 fL (8.0-11.0) 10/25/18 14:53 Immature Gran % 0.1 10/25/18 14:53 Neutrophils % 83.8 10/25/18 14:53 Lymphocytes % 8.7 10/25/18 14:53 Monocytes % 6.9 10/25/18 14:53 Eosinophils % 0.3 10/25/18 14:53 Basophils % 0.2 10/25/18 14:53 Absolute Neutrophils 10.77 k/cumm (1.2-6.7) H 10/25/18 14:53 Absolute Lymphocytes 1.12 k/cumm (1.2-3.4) L 10/25/18 14:53 Absolute Monocytes 0.89 k/cumm (0.11-0.7) H 10/25/18 14:53 Absolute Eosinophils 0.04 k/cumm (0.0-0.7) 10/25/18 14:53 Absolute Basophils 0.03 k/cumm (0.0-0.2) 10/25/18 14:53 PT 9.8 sec (9.3-11.0) 10/25/18 14:53 INR 1.0 (0.9-1.1) 10/25/18 14:53 APTT 21.5 sec (21.0-31.4) 10/25/18 14:53 Sodium 140 mmol/L (136-145) 10/25/18 14:53 Potassium 4.5 mmol/L (3.5-5.1) 10/25/18 14:53 Chloride 101 mmol/L (98-107) 10/25/18 14:53 Carbon Dioxide 31.9 mmol/L (21.0-32.0) 10/25/18 14:53 Anion Gap 7.1 mmol/L (3-11) 10/25/18 14:53 BUN 17 mg/dL (7-18) 10/25/18 14:53 Creatinine 1.10 mg/dL (0.70-1.30) 10/25/18 14:53 Estimated GFR/1.73 m2 >= 60.00 (mL/min/1.73m2) 10/25/18 14:53 Glucose 98 mg/dL (70-100) 10/25/18 14:53 Calcium 9.3 mg/dL (8.5-10.1) 10/25/18 14:53 Total Bilirubin 0.6 mg/dL (0.2-1.0) 10/25/18 14:53 AST 39 U/L (15-37) H 10/25/18 14:53 ALT 60 U/L (12-78) 10/25/18 14:53 Alkaline Phosphatase 67 U/L (46-116) 10/25/18 14:53 Total Protein 8.6 g/dL (6.4-8.2) H 10/25/18 14:53 Albumin 4.3 g/dL (3.4-5.0) 10/25/18 14:53 Patient ABO/Rh A Positive 10/25/18 14:53 Antibody Screen Negative 10/25/18 14:53
--- NOTE | 2018-10-26 14:42 | PDOC.CMPRO ---
- If Service Date Differs Date of service: 10/26/18 Time of Service: 14:42 Care Management Progress Note Rafael was admitted yesterday after a ski accident which results in a tib/fib fracture. He went to the OR yesterday with Dr. Jara. Rafael is ready for DC today, and will return to [place] (his residence). He is NWB at this time and will utilize crutches at time of DC.
--- NOTE | 2018-10-26 15:21 | PT.INIE ---
Date of service: 10/26/18 Time of Service: 15:21 PT Notes Date: 10/26/2018 Referring: Sheldon Jara MD MD diagnosis: Status post intramedullary nail fixation right tibia PT diagnosis: Same History of present illness: 43-year-old male who suffered a right tib-fib fracture yesterday when skiing [place] a [place] and hitting a tree. He underwent an ORIF with an intramedullary alina, postop day #1 Subjective: No complaints of pain offered. He does note some mild numbness in paresthesias throughout the dorsum of the right foot. Current level of function: Independent with assuming the supine to sitting to standing positions Gait: Initially, ambulated with a wheeled walker for over 200 feet, nonweightbearing on his right lower extremity requiring standby assist. Once he proved that he was stable on his feet, we used axillary crutches, again nonweightbearing on the right lower extremity, and he has a stable gait. He ascended and descended couple steps, 8 inch in height, once using the railing, and once without. He was stable performing this activity. Neuro: He is able to dorsiflex his right ankle and toe extensors. Assessment: Tolerated the upright position well and has a stable gait along with stair climbing. He complains of some numbness and pins and needles throughout the peroneal nerve distribution of his right lower leg, but he has full motor control. Patient is assessed as a low complexity initial evaluation and [id number] based on the following: History: See above Examination: See above Presentation: Evolving Decision making: Low based on his clinical findings goals: Independent bed mobility, ambulation with crutches nonweightbearing with a stable gait, and stair climbing. These goals have been met Plan: A session consisted of the evaluation, along with stretching and proper gait mechanics with crutches nonweightbearing right lower extremity along with stair climbing. Also home excise program consisting of straight leg raises in the supine side lying and prone position, and antigravity knee extension exercises. This should be done within limits of pain. DC from PT. Discharge recommendations: Heading back to [place] this afternoon Treatment time 30 minutes/9 AM Disclaimer: This note was created using [employer] voice recognition software. It was reviewed for major content. However, there may be multiple small discrepancies and errors due to the voice recognition aspects of the software.
--- NOTE | 2018-10-26 15:31 | IN_ITS ---
Date of service: 10/26/18 Time of Service: 15:21 PT Notes Date: 10/26/2018 Referring: Sheldon Jara MD MD diagnosis: Status post intramedullary nail fixation right tibia PT diagnosis: Same History of present illness: 43-year-old male who suffered a right tib-fib fracture yesterday when [place] and hitting a tree. He underwent an ORIF with an intramedullary alina, postop day #1 Subjective: No complaints of pain offered. He does note some mild numbness in paresthesias throughout the dorsum of the right foot. Current level of function: Independent with assuming the supine to sitting to standing positions Gait: Initially, ambulated with a wheeled walker for over 200 feet, nonweightbearing on his right lower extremity requiring standby assist. Once he proved that he was stable on his feet, we used axillary crutches, again nonweightbearing on the right lower extremity, and he has a stable gait. He ascended and descended couple steps, 8 inch in height, once using the railing, and once without. He was stable performing this activity. Neuro: He is able to dorsiflex his right ankle and toe extensors. Assessment: Tolerated the upright position well and has a stable gait along with stair climbing. He complains of some numbness and pins and needles throughout the peroneal nerve distribution of his right lower leg, but he has full motor control. Patient is assessed as a low complexity initial evaluation and [id number] based on the following: History: See above Examination: See above Presentation: Evolving Decision making: Low based on his clinical findings goals: Independent bed mobility, ambulation with crutches nonweightbearing with a stable gait, and stair climbing. These goals have been met Plan: A session consisted of the evaluation, along with stretching and proper gait mechanics with crutches nonweightbearing right lower extremity along with stair climbing. Also home excise program consisting of straight leg raises in the supine side lying and prone position, and antigravity knee extension exercises. This should be done within limits of pain. DC from PT. Discharge recommendations: Heading back to [place] this afternoon Treatment time 30 minutes/9 AM Disclaimer: This note was created using [employer] voice recognition software. It was reviewed for major content. However, there may be multiple small discrepancies and errors due to the voice recognition aspects of the software.
--- NOTE | 2018-10-27 10:03 | ROE_ITS ---
DATE OF SURGERY: October 25, 2018 PREOPERATIVE DIAGNOSIS: Right tib-fib fracture. POSTOPERATIVE DIAGNOSIS: Same. SURGERY: Intramedullary nail fixation of right tibia fracture. SURGEON: Mauro Jara M.D. BUSINESS QUALITY ASSURANCE ANALYST: Tyrese Case PA-C FINDINGS: There was a grossly unstable proximal mid-shaft tibia fracture. There was some significan t soft tissue stripping of the area. It was able to be reduced with manual manipulation and held wit h a Flores clamp. An intramedullary nail was then able to be placed. There was notable sluggish dors marisabel pedis return. It was very intermittent by report in the Emergency Department, although it was s jerome when I tested it preoperatively. He had a very strong posterior tibial pulse, which was also D opplered. Given the strong posterior tibial pulse, there was no further intervention at this time. ANESTHESIA: General. COMPLICATIONS: Sluggish return of dorsalis pedis pulse. Capillary refill of around three seconds wi th a strong palpable and Dopperable PT pulse. DISPOSITION: The patient was awakened from anesthesia and taken to the PACU in stable condition. INDICATION FOR PROCEDURE: Rafael is a 43-year-old who was skiing. He ran into a tree and suffered a completely displaced tib-fib fracture. I saw him in the Emergency Department and discussed treatment options. Given the significant instability of the fracture, as well as the soft tissue damage, I re commended fixation. I reviewed the risks of the procedure to include bleeding, infection, pain, stif fness, damage to nerves and vessels, damage to muscles and tendons, malunion, non-union, blood clot, compartment syndrome, need for repeat procedures, hardware prominence, hardware failure. Despite the se risks, he elected to proceed. PROCEDURE DESCRIPTION: Rafael was greeted in the preoperative holding area. He previously was consen jeannette for the procedure and history, as well, was performed in the Emergency Department. His identity was confirmed before proceeding to the Operating Room. In the Operating Room a general anesthetic wa s given while he was on the stretcher. He was then transferred over to the Operating Room table and placed in the supine position. A very small bump was placed underneath the right hip to make the pat leonela straight facing the ceiling. His right leg was placed onto a Bone Foam extremity ramp. The rig ht leg was prepped with ChloraPrep and draped in a standard fashion. A time-out was performed for sa fe surgery. Prophylactic antibiotics in the form of Cefazolin were given. The initial approach to the access point of the nail was performed first. An approximately 6 to 7 cm incision was made over the lateral border of the patella. This was taken down sharply through the s kin and soft tissues. The lateral retinacular tissue was identified. This was incised sharply and e xtended both inferiorly and superiorly. The space between the retinaculum and the synovium was ident ified and bluntly dissected to be able to palpate the anterior tibia and be able to mobilize the moreno lla. Once this was ready, I then proceeded with reduction of the fracture. The majority of the frac ture displacement was in the medial lateral direction. With the rotation dialed in and some manual m anipulation, I was able to get close. I was able to place a Flores clamp from across the fracture sit e to help pin the fracture down and this was clamped down fully with a nearly-anatomic reduction. Th ere was some comminution seen at the fracture site, which was really appreciated on the lateral. The reduction appeared to be good. The proximal fibula was manually manipulated in order to reduce its displacement as well. The manual holding of the fracture was taken off and the clamp was apparently holding the fracture quite well. I then used a starting awl for the starting point. This was made sure to be in the central portion o f the tibia in line with the shaft and just off the anterior edge of the tibial plateau. This was co nfirmed to be in a good position both on the AP and the lateral. The awl was then used for the start ing point. A curved ball-tipped guidewire was then placed and advanced down the tibia. It went acro ss the fracture site and down towards the ankle. It was made sure to stay central, both on the AP an d the lateral, and then was embedded in the physeal scar. This nail was then measured a size 375 mm nail. I then began reaming, starting with an 8.5 mm reamer. The cortices were quite tight. There w as notable chatter even at the 8.5 mm size. I was able to ream to a size 11.5 mm diameter. The C-ar m was used to confirm no major displacement of the fracture site and no major displacement in the pos ition of the ball-tipped guidewire. Once I was reamed up to a size 11.5 mm reamer, I then opened up the very proximal aspect with a 12.5 mm reamer for nail passage. The 10 x 375 mm nail was then selec jeannette. The targeting guide was attached. This was malleted into position. It was confirmed to be in a good depth, both on the lateral and also in a good position on the AP. The fracture appeared to b e reduced in the AP, however on the lateral view it seemed like there had been some displacement. Th ere was some comminution now seen that was even worse and at the fracture site on the lateral only. The AP still had good reduction with very minor distraction. We then placed the distal screws. Perf ect circles were obtained and two medial lateral screws were placed. After these were placed, a sing le A to P screw was placed. An x-ray was used to confirm that they were well positioned within the n ail and of appropriate length. There was still some very minimal distraction noted and so the nail w as back-slapped to compress down some of the distraction seen at the fracture site. This was well wi thin a millimeter or two on the AP. There still was a comminution on the lateral, which was unable t o be manipulated, but it was a primary comminution. The contralateral limb was also checked to make sure that rotation seemed to be accurate. He had some slight internal rotation of the foot compared to the patella, which was similar to the contralateral side. With the targeting guide I then placed two proximal screws, one in the diagonal hole and one in the side hole from a medial lateral directio n, given the orientation of the nail. These were again confirmed to be in good position and good fatuma gth with the C-arm fluoroscopy. The targeting guide was then removed. The knee was thoroughly irrig ated for any bony fragments and there was a significant amount of bone and debris. The surgical site s and fracture site were injected with a mixture of 0.5% Bupivacaine and Exparel. A total of 20 cc's of Exparel was used, along with 20 cc's of Bupivacaine. The stab wound incisions for the screw plac ements were closed with a Nylon suture. The retinaculum was closed with #1 Vicryl. The deep tissues were closed with #0 Vicryl followed by #2-0 Vicryl. The skin was closed again with #4-0 Nylon. Fin al neurovascular check showed that there was a very faint dorsalis pedis pulse. This seemed to be ve ry intermittent at times. The capillary refill in the central two toes was somewhat sluggish. The p osterior tibial pulse was palpable. A Doppler was used, which showed a very, very faint dorsalis ped is pulse and a very strong posterior tibial pulse. The foot was pink, although the capillary refill was slightly sluggish in the second toe primarily. We therefore decided to not manipulate anything a t this time. 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 He was then dressed with a Xeroform, followed by 4x4's and a Kerlix. A well-padded posterior slab splint was then appli ed. A Mepilex Silver Dressing was placed over the knee wound. At the end of the case all counts wer e correct. He was transferred back to the Recovery Room in a stable condition.
== END 2018-10-26 14:10 | disposition home or self-care (01) | DRG 494 ==
LOC: ER 16:22 → MS 20:48 → ER 10-27 10:54 → SUR 10-27 10:54 → MS 10-27 10:55
PROVIDERS: Admitting Provider Student in an Organized Health Care Education/Training Program; Emergency Provider Student in an Organized Health Care Education/Training Program; Visit Provider Student in an Organized Health Care Education/Training Program
PROC: 0QSG06Z Reposition Right Tibia with Intramedullary Internal Fixation Device, Open Approach (ICD-10-PCS; CPT 27759; principal; 2018-10-25 16:45)
DX: S82.221A Displaced transverse fracture of shaft of right tibia, initial encounter for closed fracture (principal); S82.421A Displaced transverse fracture of shaft of right fibula, initial encounter for closed fracture; W51.XXXA Accidental striking against or bumped into by another person, initial encounter; Y93.23 Activity, snow (alpine) (downhill) skiing, snowboarding, sledding, tobogganing and snow tubing; Y92.838 Other recreation area as the place of occurrence of the external cause; R09.89 Other specified symptoms and signs involving the circulatory and respiratory systems
CPT/HCPCS: 27759; 36415; 80053; 86850; 86900; 86901; 96374; 97162; 99253; 99285; J1650; NC; 73590; 85025; 85610; 85730; 99284; J0690; J1100; J1885